=== PATIENT | male | born 1940 | race Caucasian/White ===

== ENCOUNTER 2017-08-21 10:47 | Emergency (ER) | payer MEDICARE, OTHER ==
[2017-08-21 11:15] VITALS: BP 121/64
--- NOTE | 2017-08-21 11:45 | UC ---
FLU HPI - HPI Summary HPI Summary: Pt c/o of chills, fatigue, nausea, and generalized body aches X 2 days. Pt reports diarrhea X1 today - History of Current Complaint Chief Complaint: UCGeneralIllness Stated Complaint: NAUSEA DIARRHEA CHILLS Time Seen by Provider: 08/21/17 11:33 Hx Obtained From: Patient Onset/Duration: Sudden Onset, Lasting Days, Still Present Severity Currently: Mild Severity Initially: Mild Associated Signs & Symptoms: Positive: Myalgia, Diarrhea Related Hx: Possible Flu/Infectious Exposure - Allergy/Home Medications Allergies/Adverse Reactions: Allergies Allergy/AdvReac Type Severity Reaction Status Date / Time Iodinated Contrast Media Allergy Intermediate Hives Verified 08/21/17 11:14 [IV CONTRAST DYE] PMH/Surg Hx/FS Hx/Imm Hx Previously Healthy: Yes Cardiovascular History: Hypertension - Surgical History Surgical History: Yes Surgery Procedure, Year, and Place: 3 CARDIAC STENTS, DEVIATED SEPTUM, RT THUMB SURGERY. RT LEG SURGERY,CATARACTS,LT SHOULDER ROTATOR CUFF REPAIR - Family History Known Family History: Positive: Cardiac Disease, Hypertension, Diabetes - Social History Occupation: Retired Lives: With Family Alcohol Use: Rare Substance Use Type: None Smoking Status (MU): Former Smoker Type: Cigarettes Have You Smoked in the Last Year: No When Did the Patient Quit Smoking/Using Tobacco: 1977 - Immunization History Most Recent Influenza Vaccination: current for 2016/2017 Most Recent Pneumonia Vaccination: current Review of Systems Constitutional: Chills, Fatigue Skin: Negative Eyes: Negative ENT: Other - nasal congestion Respiratory: Negative Cardiovascular: Negative Gastrointestinal: Diarrhea, Nausea Genitourinary: Negative Motor: Negative Neurovascular: Negative Musculoskeletal: Negative Neurological: Negative Psychological: Negative Is Patient Immunocompromised?: No All Other Systems Reviewed And Are Negative: Yes Physical Exam Triage Information Reviewed: Yes Appearance: Well-Appearing Vital Signs: Initial Vital Signs Temp 97.7 F 08/21/17 11:09 Pulse 65 08/21/17 11:09 Resp 16 08/21/17 11:09 BP 121/64 08/21/17 11:09 Pulse Ox 99 08/21/17 11:09 Vital Signs Reviewed: Yes Eye Exam: Normal ENT Exam: Other ENT: Positive: Nasal congestion Dental Exam: Normal Neck exam: Normal Respiratory Exam: Normal Cardiovascular Exam: Normal Musculoskeletal Exam: Normal Neurological Exam: Normal Psychological Exam: Normal Skin Exam: Normal Flu Course/Dx - Differential Dx/Diagnosis Differential Diagnosis/HQI/PQRI: Influenza, Upper Respiratory Infection Provider Diagnoses: viral syndrome Discharge - Discharge Plan Condition: Stable Disposition: HOME Patient Education Materials: Viral Syndrome (ED) Referrals: Snow UGARTE,Gurjit Fernando [Primary Care Provider] - If Needed
== END 2017-08-21 11:52 | disposition home or self-care (01) ==
LOC: UCCORT 10:47
DX: B34.9 Viral infection, unspecified (principal); I10 Essential (primary) hypertension; Z95.5 Presence of coronary angioplasty implant and graft; Z91.041 Radiographic dye allergy status; Z87.891 Personal history of nicotine dependence
CPT/HCPCS: 87502; 99211; G0463

== ENCOUNTER 2018-04-27 11:34 | Emergency (ER) | payer MEDICARE, OTHER ==
[2018-04-27 12:07] VITALS: BP 130/65
--- NOTE | 2018-04-27 12:43 | UC ---
Ear Complaint HPI - HPI Summary HPI Summary: Patient states that his ears have been clogged for about a week, has been cleaning ears with peroxide and applying oil in his ears but continues to feel that they are 'clogged'. Denies ear pain, fever, chills or discharge. - History of Current Complaint Chief Complaint: UCEar Stated Complaint: RIGHT EAR COMPLAINT Time Seen by Provider: 04/27/18 12:35 Hx Obtained From: Patient Onset/Duration: Gradual Onset, Lasting Weeks Severity Initially: Mild Severity Currently: Mild Pain Intensity: 0 Associated Signs/Symptoms: Positive: Hearing Loss - Allergies/Home Medications Allergies/Adverse Reactions: Allergies Allergy/AdvReac Type Severity Reaction Status Date / Time MS Iodinated Contrast Media Allergy Intermediate Hives Verified 08/21/17 11:14 [IV CONTRAST DYE] Home Medications: Home Medications Ergocalciferol (Vitamin D2) [Vitamin D2] 1,000 unit PO DAILY 04/27/18 [History Confirmed 04/27/18] PMH/Surg Hx/FS Hx/Imm Hx Endocrine History: Dyslipidemia Cardiovascular History: Hypertension Respiratory History: Asthma GI/ History: Gastroesophageal Reflux Psychological History: Depression - Surgical History Surgical History: Yes Surgery Procedure, Year, and Place: 3 CARDIAC STENTS, DEVIATED SEPTUM, RT THUMB SURGERY. RT LEG SURGERY,CATARACTS,LT SHOULDER ROTATOR CUFF REPAIR - Family History Known Family History: Positive: Cardiac Disease, Hypertension, Diabetes - Social History Alcohol Use: Rare Substance Use Type: None Smoking Status (MU): Former Smoker Type: Cigarettes Have You Smoked in the Last Year: No When Did the Patient Quit Smoking/Using Tobacco: 1977 - Immunization History Most Recent Influenza Vaccination: current for Most Recent Pneumonia Vaccination: current Review of Systems Constitutional: Negative ENT: Other - ears obstruction Respiratory: Negative All Other Systems Reviewed And Are Negative: Yes Physical Exam Triage Information Reviewed: Yes Appearance: Well-Appearing, No Pain Distress, Well-Nourished Vital Signs: Initial Vital Signs Temp 98.5 F 04/27/18 11:59 Pulse 61 04/27/18 11:59 Resp 18 04/27/18 11:59 BP 130/65 04/27/18 11:59 Pulse Ox 99 04/27/18 11:59 Eyes: Positive: Conjunctiva Clear ENT: Positive: Other - cerumen impaction b/l Neck: Positive: Supple, Nontender, No Lymphadenopathy Respiratory: Positive: Chest non-tender, Lungs clear, Normal breath sounds, No respiratory distress Cardiovascular: Positive: Pulses Normal, Brisk Capillary Refill Abdomen Description: Positive: Nontender Ear Complaint Course/Dx - Course Course Of Treatment: cerumen impaction bilateral, ear irrigation performed at successful, TMI b/l . Patient tolerated procedure well. - Differential Dx/Diagnosis Provider Diagnoses: cerumen impaction Discharge - Sign-Out/Discharge Documenting (check all that apply): Patient Departure All imaging exams completed and their final reports reviewed: No Studies - Discharge Plan Condition: Stable Disposition: HOME Patient Education Materials: Cerumen Impaction (ED) Referrals: Snow UGARTE,Gurjit Fernando [Primary Care Provider] - - Billing Disposition and Condition Condition: STABLE Disposition: Home
== END 2018-04-27 13:24 | disposition home or self-care (01) ==
LOC: UCCORT 11:34
CPT/HCPCS: 99213; G0463

== ENCOUNTER 2018-07-08 09:27 | Emergency (ER) | payer MEDICARE, OTHER ==
[2018-07-08 10:21] VITALS: BP 111/62
--- NOTE | 2018-07-08 11:14 | UC ---
General HPI - HPI Summary HPI Summary: 1. bilateral ear soreness, dry and cracking for several days. tried Aquafor with no relief. wear hearing aides. 2. Episodes of dizziness past couple of days. describes as off balance. occurs with postion changes and turn of head. no acute visual changes, change in speech or numb/tingle or weakness to extremities. hx same. 3. Did have an "ocular migraine" last pm, describes has a headaches with zig zag lines in vision. hx same. that has resoled. BASS not abrupt or worst. - History of Current Complaint Chief Complaint: UCDizziness Stated Complaint: DIZZINESS Time Seen by Provider: 07/08/18 11:04 Hx Obtained From: Patient Pain Intensity: 2 Associated Signs & Symptoms: Negative: Chest Pain, Nausea, Vomiting, Weakness - Allergy/Home Medications Allergies/Adverse Reactions: Allergies Allergy/AdvReac Type Severity Reaction Status Date / Time Iodinated Contrast- Oral and Allergy Hives Verified 07/08/18 10:17 IV Dye Home Medications: Home Medications Pravastatin Sodium 40 mg PO DAILY 07/08/18 [History Confirmed 07/08/18] PMH/Surg Hx/FS Hx/Imm Hx - Additional Past Medical History Additional PMH: occular migraine, chronic ear problems, dizziness. Endocrine History: Dyslipidemia Cardiovascular History: Hypertension Psychological History: Anxiety - Surgical History Surgical History: Yes Surgery Procedure, Year, and Place: 3 CARDIAC STENTS, DEVIATED SEPTUM, RT THUMB SURGERY. RT LEG SURGERY,CATARACTS,LT SHOULDER ROTATOR CUFF REPAIR - Family History Known Family History: Positive: Cardiac Disease, Hypertension, Diabetes - Social History Occupation: Retired Alcohol Use: Rare Substance Use Type: None Smoking Status (MU): Former Smoker Type: Cigarettes Have You Smoked in the Last Year: No When Did the Patient Quit Smoking/Using Tobacco: 1977 - Immunization History Most Recent Influenza Vaccination: current for 2017/2017 Most Recent Pneumonia Vaccination: current Vaccination Up to Date: Yes Review of Systems All Other Systems Reviewed And Are Negative: Yes Constitutional: Negative: Fever Skin: Positive: Negative Eyes: Negative: Blurred Vision, Diplopia ENT: Positive: Ear Ache - canals Respiratory: Positive: Negative Cardiovascular: Negative: Palpitations, Chest Pain Gastrointestinal: Positive: Negative Genitourinary: Positive: Negative Motor: Positive: Negative Neurovascular: Negative: Decreased Sensation Musculoskeletal: Positive: Negative Neurological: Negative: Weakness, Paresthesia, Numbness Psychological: Positive: Negative Is Patient Immunocompromised?: No Physical Exam Triage Information Reviewed: Yes Appearance: Well-Appearing Vital Signs: Initial Vital Signs Temp 98 F 07/08/18 10:14 Pulse 62 07/08/18 10:14 Resp 17 07/08/18 10:14 BP 111/62 07/08/18 10:14 Pulse Ox 99 07/08/18 10:14 Vital Signs Reviewed: Yes Eyes: Positive: Conjunctiva Clear, Other: - Pupils s/p cataract. EOMI. ENT: Positive: Pharynx normal, Other - Ear canals both mildly red with dry and peeling. TM opaque in color but not red or buldging.. Negative: Nasal congestion, Nasal drainage Neck: Positive: Supple, Nontender, No Lymphadenopathy, Other: - No carotid bruits. Respiratory: Positive: Lungs clear, Normal breath sounds Cardiovascular: Positive: RRR, No Murmur Abdomen Description: Positive: Nontender, No Organomegaly, Soft Bowel Sounds: Positive: Present Musculoskeletal: Positive: ROM Intact Neurological: Positive: Other: - A&O x3. CN grossly intact. 5/5 strength and 2+ REFLEXES AND SENSATION INTACT X4. PERFORMS RAPID ALTERNATING MOVES WITH EASE. NEGATIVE RHOMBERG AND PRONATOR DRIFT. STEADY GAIT. STANDING AND RAPID TIRN OF HEAD REPRODUCES DIZZINESS Psychological: Positive: Age Appropriate Behavior Skin Exam: Normal Course/Dx - Course Course Of Treatment: NO CONCERN FOR CENTRAL VERTIGO, NEURO EXAM REASSURING AND DIZZINESS REPRODUCBLE WITH POSITION CHANGES AND TURN OF HEAD. - Diagnoses Provider Diagnosis: Otitis externa, Dizziness Discharge - Sign-Out/Discharge Documenting (check all that apply): Patient Departure All imaging exams completed and their final reports reviewed: No Studies - Discharge Plan Condition: Stable Disposition: HOME Prescriptions: Ciproflox/Dexameth OTIC.SUSP* [Ciprodex OTIC.SUSP*] 4 drop .SEE ORDER BID 7 Days #1 btl Meclizine TAB* [Antivert 12.5 TAB*] 12.5 mg PO TID PRN #10 tab PRN Reason: Dizziness Patient Education Materials: Dizziness (ED), Otitis Externa (ED) Referrals: Snow UGARTE,Gurjit Fernando [Primary Care Provider] - As Soon As Possible Additional Instructions: FOLLOW UP WITH YOUR ENT AT [facility] SCHEDULED FOR THIS COMING SATURDAY. - Billing Disposition and Condition Condition: STABLE Disposition: Home
== END 2018-07-08 11:23 | disposition home or self-care (01) ==
LOC: UCCORT 09:27
DX: H60.90 Unspecified otitis externa, unspecified ear (principal); R53.83 Other fatigue; Z91.041 Radiographic dye allergy status; Z87.891 Personal history of nicotine dependence
CPT/HCPCS: 99212; G0463

== ENCOUNTER 2019-01-28 13:59 | Emergency (ER) | payer MEDICARE, OTHER ==
--- NOTE | 2019-01-28 14:26 | UC ---
General HPI - HPI Summary HPI Summary: sore throat since yesterday. exposed to strep throat. no fever or difficulty with swallowing. - History of Current Complaint Chief Complaint: UCGeneralIllness Stated Complaint: SORE THROAT Time Seen by Provider: 01/28/19 14:10 Hx Obtained From: Patient Onset/Duration: Gradual Onset Timing: Constant Pain Intensity: 0 Associated Signs & Symptoms: Negative: Cough, Chest Pain, Fever, SOB - Allergy/Home Medications Allergies/Adverse Reactions: Allergies Allergy/AdvReac Type Severity Reaction Status Date / Time Iodinated Contrast- Oral and Allergy Hives Verified 01/28/19 14:16 IV Dye Home Medications: Home Medications Amiodarone TAB* [Cordarone TAB*] 200 mg PO DAILY 01/28/19 [History Confirmed ] Cholecalciferol (Vitamin D3) [Vitamin D3] 2,000 unit PO DAILY 01/28/19 [History Confirmed 01/28/19] Cyanocobalamin TAB* [Vitamin B12 TAB*] 500 mcg PO DAILY 01/28/19 [History Confirmed 01/28/19] Rivaroxaban TAB(*) [Xarelto 20 mg] 20 mg PO DAILY 01/28/19 [History Confirmed ] PMH/Surg Hx/FS Hx/Imm Hx Endocrine History: Dyslipidemia Cardiovascular History: Hypertension, Myocardial Infarction - Surgical History Surgical History: Yes Surgery Procedure, Year, and Place: 3 CARDIAC STENTS, DEVIATED SEPTUM, RT THUMB SURGERY. RT LEG SURGERY,CATARACTS,LT SHOULDER ROTATOR CUFF REPAIR - Family History Known Family History: Positive: Cardiac Disease, Hypertension, Diabetes - Social History Lives: With Family Alcohol Use: None Substance Use Type: None Smoking Status (MU): Former Smoker Type: Cigarettes Have You Smoked in the Last Year: No When Did the Patient Quit Smoking/Using Tobacco: 1977 - Immunization History Most Recent Influenza Vaccination: current for Most Recent Pneumonia Vaccination: current Vaccination Up to Date: Yes Review of Systems All Other Systems Reviewed And Are Negative: Yes Constitutional: Negative: Fever, Chills ENT: Positive: Sore Throat. Negative: Ear Ache, Sinus Congestion Respiratory: Negative: Shortness Of Breath, Cough Cardiovascular: Negative: Chest Pain Physical Exam Triage Information Reviewed: Yes Appearance: Well-Appearing Vital Signs: Initial Vital Signs Temp 98.2 F 01/28/19 14:12 Pulse 60 01/28/19 14:12 Resp 18 01/28/19 14:12 BP 124/54 01/28/19 14:12 Pulse Ox 98 01/28/19 14:12 Vital Signs Reviewed: Yes Eyes: Positive: Conjunctiva Clear ENT: Positive: Pharyngeal erythema - with mild swelling, TMs normal, Uvula midline. Negative: Nasal congestion, Nasal drainage, Trismus, Muffled voice, Hoarse voice Neck: Positive: Supple, Nontender, No Lymphadenopathy Respiratory: Positive: Lungs clear, Normal breath sounds, No respiratory distress Cardiovascular: Positive: RRR, No Murmur Abdomen Description: Positive: Nontender Musculoskeletal: Positive: ROM Intact Neurological: Positive: Alert Psychological: Positive: Age Appropriate Behavior Skin Exam: Normal Diagnostics - Laboratory Lab Results: rapid strep=negative Course/Dx - Differential Dx - Multi-Symptom Differential Diagnoses: Other - no s/s's of thrush. no concern for abscess. rapid strep=neg. antibiotics not indicated. - Diagnoses Provider Diagnosis: Pharyngitis Discharge - Sign-Out/Discharge Documenting (check all that apply): Patient Departure All imaging exams completed and their final reports reviewed: No Studies - Discharge Plan Condition: Stable Disposition: HOME Patient Education Materials: Pharyngitis (ED) Referrals: Snow UGARTE,Gurjit Fernando [Primary Care Provider] - Additional Instructions: FOLLOWUP IF NOT BETTER IN 5 DAYS OR SOONER IF WORSE. - Billing Disposition and Condition Condition: STABLE Disposition: Home
[2019-01-28 15:10] VITALS: BP 124/54
== END 2019-01-28 14:49 | disposition home or self-care (01) ==
LOC: UCCORT 13:59
DX: J02.9 Acute pharyngitis, unspecified (principal); Z20.828 Contact with and (suspected) exposure to other viral communicable diseases; I25.2 Old myocardial infarction; I10 Essential (primary) hypertension; Z79.01 Long term (current) use of anticoagulants; Z87.891 Personal history of nicotine dependence
CPT/HCPCS: 87651; 99211; G0463

== ENCOUNTER 2019-02-05 16:37 | Emergency (ER) | payer MEDICARE, OTHER ==
[2019-02-05 16:48] VITALS: BP 120/54
--- NOTE | 2019-02-05 17:11 | UC ---
Respiratory Complaint HPI - HPI Summary HPI Summary: 78 yo male with cough x 9 days no sob hurts whne he coughs sometimes productive no fever/ chills no n/v/d no abd pain - History of Current Complaint Chief Complaint: UCRespiratory Stated Complaint: COUGH Time Seen by Provider: 02/05/19 16:52 Hx Obtained From: Patient Onset/Duration: Gradual Onset Severity Initially: Mild Severity Currently: Moderate Pain Intensity: 0 Pain Scale Used: 0-10 Numeric Character: Cough: Productive Aggravating Factors: Nothing Associated Signs And Symptoms: Positive: Negative - Allergies/Home Medications Allergies/Adverse Reactions: Allergies Allergy/AdvReac Type Severity Reaction Status Date / Time Iodinated Contrast- Oral and Allergy Hives Verified 01/28/19 14:16 IV Dye PMH/Surg Hx/FS Hx/Imm Hx Previously Healthy: Yes Endocrine History: Dyslipidemia Cardiovascular History: Cardiac Disease, Hypertension, Myocardial Infarction, Atrial Fibrillation GI/ History: Other Other GI/ History: Barretts esphophagitis - Surgical History Surgical History: Yes Surgery Procedure, Year, and Place: 3 CARDIAC STENTS, DEVIATED SEPTUM, RT THUMB SURGERY. RT LEG SURGERY,CATARACTS,LT SHOULDER ROTATOR CUFF REPAIR - Family History Known Family History: Positive: Cardiac Disease, Hypertension, Diabetes - Social History Alcohol Use: None Substance Use Type: None Smoking Status (MU): Former Smoker Type: Cigarettes Have You Smoked in the Last Year: No When Did the Patient Quit Smoking/Using Tobacco: 1977 - Immunization History Most Recent Influenza Vaccination: current for Most Recent Pneumonia Vaccination: current Vaccination Up to Date: Yes Review of Systems All Other Systems Reviewed And Are Negative: Yes Skin: Positive: Negative Eyes: Positive: Negative ENT: Positive: Negative Respiratory: Positive: Cough Cardiovascular: Positive: Negative Gastrointestinal: Positive: Negative Genitourinary: Positive: Negative Motor: Positive: Negative Neurovascular: Positive: Negative Musculoskeletal: Positive: Negative Neurological: Positive: Negative Psychological: Positive: Negative Physical Exam Triage Information Reviewed: Yes Appearance: Well-Appearing, No Pain Distress, Well-Nourished Vital Signs: Initial Vital Signs Temp 97.9 F 02/05/19 16:44 Pulse 60 02/05/19 16:44 Resp 16 02/05/19 16:44 BP 120/54 02/05/19 16:44 Pulse Ox 96 02/05/19 16:44 Vital Signs Reviewed: Yes Eyes: Positive: Conjunctiva Clear ENT: Negative: Hearing grossly normal - hearing aids, Nasal congestion, Nasal drainage, Trismus, Muffled voice, Hoarse voice, Sinus tenderness Neck: Positive: Supple, Nontender, No Lymphadenopathy Respiratory: Positive: Lungs clear, Normal breath sounds, No respiratory distress, No accessory muscle use Cardiovascular: Positive: RRR, No Murmur Musculoskeletal: Positive: ROM Intact, No Edema Neurological: Positive: Alert Psychological Exam: Normal Skin Exam: Normal Diagnostics - Radiology No standard instances Radiology Interpretation Completed By: Radiologist Summary of Radiographic Findings: stigmata of COPD, no infiltrate Respiratory Course/Dx - Differential Dx/Diagnosis Provider Diagnosis: Acute bronchitis Discharge - Sign-Out/Discharge Documenting (check all that apply): Patient Departure All imaging exams completed and their final reports reviewed: Yes - Discharge Plan Condition: Stable Disposition: HOME Prescriptions: Amoxicillin PO (*) [Amoxicillin 875 MG (*)] 875 mg PO BID #14 tab Patient Education Materials: Acute Bronchitis (ED) Referrals: Snow UGARTE,Gurjit Fernando [Primary Care Provider] - 5 Days (if not better) - Billing Disposition and Condition Condition: STABLE Disposition: Home
== END 2019-02-05 17:34 | disposition home or self-care (01) ==
LOC: UCCORT 16:37
DX: J98.01 Acute bronchospasm (principal); I10 Essential (primary) hypertension; I25.2 Old myocardial infarction; Z87.891 Personal history of nicotine dependence
CPT/HCPCS: 71046; 99212; G0463

== ENCOUNTER 2019-05-09 19:13 | Emergency (ER) | payer MEDICARE, OTHER ==
[2019-05-09 19:34] VITALS: BP 124/58
--- NOTE | 2019-05-09 19:47 | UC ---
UC General HPI - HPI Summary HPI Summary: pt notes any itchy rash in his L armpit x 1 weeks. it is enlarging. he has been applying alcohol and today used a pin to open the center. no other rashes. - History of Current Complaint Chief Complaint: Aylin Stated Complaint: BUG BITE UNDER RIGHT ARMPIT Time Seen by Provider: 05/09/19 19:32 Hx Obtained From: Patient Onset/Duration: Gradual Onset Timing: Constant Pain Intensity: 0 Associated Signs & Symptoms: Negative: Fever - Allergy/Home Medications Allergies/Adverse Reactions: Allergies Allergy/AdvReac Type Severity Reaction Status Date / Time Iodinated Contrast Media Allergy Hives Verified 05/09/19 19:25 [Iodinated Contrast- Oral and IV Dye] PMH/Surg Hx/FS Hx/Imm Hx Endocrine History: Dyslipidemia Cardiovascular History: Hypertension GI/ History: Gastroesophageal Reflux Psychological History: Depression - Surgical History Surgical History: Yes Surgery Procedure, Year, and Place: 3 CARDIAC STENTS, DEVIATED SEPTUM, RT THUMB SURGERY. RT LEG SURGERY,CATARACTS,LT SHOULDER ROTATOR CUFF REPAIR - Family History Known Family History: Positive: Cardiac Disease, Hypertension, Diabetes - Social History Alcohol Use: Rare Substance Use Type: None Smoking Status (MU): Former Smoker Type: Cigarettes Have You Smoked in the Last Year: No When Did the Patient Quit Smoking/Using Tobacco: 1977 - Immunization History Most Recent Influenza Vaccination: current for Most Recent Pneumonia Vaccination: current Vaccination Up to Date: Yes Review of Systems All Other Systems Reviewed And Are Negative: No Constitutional: Negative: Fever, Chills Skin: Positive: Rash Musculoskeletal: Negative: Arthralgia, Decreased ROM, Edema Physical Exam Triage Information Reviewed: Yes Appearance: Well-Appearing Vital Signs: Initial Vital Signs Temp 98.5 F 05/09/19 19:28 Pulse 55 05/09/19 19:28 Resp 20 05/09/19 19:28 BP 124/58 05/09/19 19:28 Pulse Ox 97 05/09/19 19:28 Vital Signs Reviewed: Yes Musculoskeletal: Positive: ROM Intact - LUE, No Edema - LUE Neurological: Positive: Alert Psychological: Positive: Age Appropriate Behavior Skin Exam: Normal Skin: Positive: Rashes - L axilla has a circular pink rash with a rough border the size of a priscilla. The center is open where the pt opened it with a needle. no adenoapthy. Course/Dx - Course Course Of Treatment: pt advised to stop the alcohol use and picking at it with a pin. - Diagnoses Provider Diagnosis: Tinea corporis Discharge ED - Sign-Out/Discharge Documenting (check all that apply): Patient Departure All imaging exams completed and their final reports reviewed: No Studies - Discharge Plan Condition: Stable Disposition: HOME Prescriptions: Ketoconazole 2 % CREAM (NF) [Nizoral 2% CREAM (NF)] 1 applic TOPICAL BID #1 tube Patient Education Materials: Tinea Corporis (ED) Referrals: Snow UGARTE,Gurjit Fernando [Primary Care Provider] - Additional Instructions: FOLLOW UP WITH PRIMARY CARE IN 2 WEEKS OR SOONER IF WORSE. - Billing Disposition and Condition Condition: STABLE Disposition: Home
== END 2019-05-09 20:13 | disposition home or self-care (01) ==
LOC: UCCORT 19:13
DX: B35.4 Tinea corporis (principal); Z91.041 Radiographic dye allergy status; I10 Essential (primary) hypertension; Z87.891 Personal history of nicotine dependence
CPT/HCPCS: 99211; G0463